=== PATIENT | male | born 1960 | race Caucasian/White ===

== ENCOUNTER 2019-03-05 09:18 | Emergency (ER) | payer SELFPAY ==
[~2019-03-05] VITALS: Ht 190.5 cm; Wt 109.0 kg
[2019-03-05 09:59] LABS: BASOPHILS % 1.4 % (0.0-2.0); HEMATOCRIT. 43.2 % (42.0-52.0); HEMOGLOBIN. 14.9 g/dL (14.0-18.0); LYMPHOCYTES % 41.2 % (20.0-50.0); MEAN CORPUSCULAR HEMOGLOBIN 31.4 pg (28.0-32.0); MEAN CORPUSCULAR VOLUME 91.2 fL (80.0-94.0); MEAN PLATELET VOLUME 6.7 fl (7.4-10.4); MONOCYTES % 7.2 % (2.0-8.0); NEUTROPHILS % 49.2 % (40.0-76.0); PLATELET 292 x1000/uL (130-400); RED BLOOD CELL COUNT 4.74 mill/uL (4.7-6.1); RED CELL DISTRIBUTION WIDTH 14.2 % (11.6-14.6)
[2019-03-05 10:02] LABS: CHLORIDE 112 mEq/L (98-107)
[2019-03-05 10:24] LABS: ETHANOL BLOOD 464 mg/dL
[2019-03-05 12:42] VITALS: BP 145/85
== END 2019-03-05 14:08 | disposition home or self-care (01) ==
LOC: EDBD → ER 09:18
DX: F10.129 Alcohol abuse with intoxication, unspecified (principal); Y90.8 Blood alcohol level of 240 mg/100 ml or more; F17.210 Nicotine dependence, cigarettes, uncomplicated; R03.0 Elevated blood-pressure reading, without diagnosis of hypertension
CPT/HCPCS: 36415; 80320; 99283; G0480

== ENCOUNTER 2019-03-05 20:24 | Emergency (ER) | payer SELFPAY ==
[~2019-03-05] VITALS: Ht 177.8 cm; Wt 90.0 kg
[2019-03-05] MEDS ORDERED: SODIUM CHLORIDE 0.9% 1,000 ML IV ONE (22:49)
[2019-03-05] MEDS ORDERED: ONDANSETRON HCL 4MG/2ML INJ IV STA (22:49)
[2019-03-05 23:32] LABS: BASOPHILS % 0.5 % (0.0-2.0); EOSINOPHILS % 0.6 % (0.0-5.0); HEMOGLOBIN. 14.2 g/dL (14.0-18.0); LYMPHOCYTES % 37.7 % (20.0-50.0); MEAN CORPUSCULAR HEMOGLOBIN 30.7 pg (28.0-32.0); MEAN CORPUSCULAR VOLUME 90.5 fL (80.0-94.0); MEAN PLATELET VOLUME 6.9 fl (7.4-10.4); MONOCYTES % 7.5 % (2.0-8.0); NEUTROPHILS % 53.7 % (40.0-76.0); PLATELET 278 x1000/uL (130-400); RED BLOOD CELL COUNT 4.64 mill/uL (4.7-6.1); RED CELL DISTRIBUTION WIDTH 13.7 % (11.6-14.6)
[2019-03-05 23:37] LABS: CHLORIDE 110 mEq/L (98-107)
[2019-03-06 00:18] LABS: ETHANOL BLOOD 421 mg/dL
[2019-03-06 02:05] LABS: *BARBITURATES SCREEN URINE NEGATIVE (NEGATIVE); *BENZODIAZEPINES SCREEN URINE NEGATIVE (NEGATIVE); *COCAINE SCREEN URINE NEGATIVE (NEGATIVE); METHADONE URINE SCREEN NEGATIVE (NEGATIVE); OPIATES URINE SCREEN NEGATIVE (NEGATIVE); PHENCYCLIDINE URINE SCREEN NEGATIVE (NEGATIVE)
[2019-03-06 02:06] LABS: *AMPHETAMINES SCREEN URINE NEGATIVE (NEGATIVE); CANNABINOID URINE SCREEN NEGATIVE (NEGATIVE)
[2019-03-06 03:30] VITALS: BP 125/75
== END 2019-03-06 03:49 | disposition home or self-care (01) ==
LOC: ER 20:24
DX: G93.40 Encephalopathy, unspecified (principal); T51.0X1A Toxic effect of ethanol, accidental (unintentional), initial encounter; Y92.488 Other paved roadways as the place of occurrence of the external cause
CPT/HCPCS: 36415; 80053; 80305; 80307; 80320; 80329; 82962; 85025; 96374; 99283; J2405; J7030; Z7610; G0480

== ENCOUNTER 2019-05-15 10:20 | Emergency (ER) | payer SELFPAY ==
[~2019-05-15] VITALS: Ht 182.9 cm; Wt 91.0 kg
[2019-05-15 10:23] VITALS: BP 132/88
== END 2019-05-15 12:29 | disposition left against medical advice (07) ==
LOC: ER 10:20
DX: F10.129 Alcohol abuse with intoxication, unspecified (principal); Y90.0 Blood alcohol level of less than 20 mg/100 ml
CPT/HCPCS: 99283

== ENCOUNTER 2019-05-17 10:12 | Emergency (ER) | payer SELFPAY ==
[~2019-05-17] VITALS: Ht 172.7 cm; Wt 85.0 kg
[2019-05-17 10:19] VITALS: BP 133/82
== END 2019-05-17 11:03 | disposition left against medical advice (07) ==
LOC: ER 10:12
DX: F10.10 Alcohol abuse, uncomplicated (principal); Z53.21 Procedure and treatment not carried out due to patient leaving prior to being seen by health care provider

== ENCOUNTER 2020-05-21 23:07 | Emergency (ER) | payer MEDICAID ==
[~2020-05-21] VITALS: Ht 182.9 cm; Wt 100.0 kg
[2020-05-22 01:05] VITALS: BP 136/87
== END 2020-05-22 02:20 | disposition home or self-care (01) ==
LOC: ER 23:52
DX: F10.129 Alcohol abuse with intoxication, unspecified (principal); Y90.9 Presence of alcohol in blood, level not specified; G92 Toxic encephalopathy; R03.0 Elevated blood-pressure reading, without diagnosis of hypertension
CPT/HCPCS: 93005; 99283

== ENCOUNTER 2024-04-08 21:44 | Emergency (ER) | payer MEDICAID, MEDICARE ==
[~2024-04-08] VITALS: Ht 175.3 cm; Wt 82.0 kg
[2024-04-08 21:46] VITALS: O2SAT 98
[2024-04-08] MEDS: SODIUM CHLORIDE 0.9% 1,000 ML IV ONE (22:15)
[2024-04-09 06:56] VITALS: BP 124/61; PULSE 62; RESP 18
== END 2024-04-09 06:57 | disposition home or self-care (01) ==
LOC: ER 21:44
DX: F10.129 Alcohol abuse with intoxication, unspecified (principal); Z00.00 Encounter for general adult medical examination without abnormal findings; Z59.00 Homelessness unspecified; Y90.8 Blood alcohol level of 240 mg/100 ml or more
CPT/HCPCS: 80320; 36415; 96360; 96361; 99285; J7030; G0480